=== PATIENT | female | born 1995 | race Two or more races ===

== ENCOUNTER 2024-07-28 15:13 | Emergency (ER) | payer MEDICAID, SELFPAY ==
[2024-07-28 15:27] VITALS: BP 129/84; PULSE 87; RESP 18; TEMP 36.9; O2SAT 98; BMI 37.8
--- NOTE | 2024-07-28 15:31 | XR_ITS ---
Examination: CT abdomen and pelvis without contrast. Coronal 3-D reconstructions. Sagittal 2-D reconstructions. Date and time of exam:July 28, 2024 1618 hours INDICATIONS: Onset right lower abdominal pain right flank pain today COMPARISON: March 30, 2024 CTDI: vol (mGy): 14.7 DLP: (mGycm): 916 Technique: Axial images of the abdomen have been obtained, 3 mm slice thickness Intravenous contrast material has not been administered. Low dose protocols were performed. One or more of the following dose reduction techniques were used; automated exposure control, adjustment of the mA and/or KV according to patient size, use of iterative reconstruction technique. Findings: No focal liver or splenic lesions Contracted gallbladder No pancreatic or adrenal mass No renal or ureteral calculi, no hydronephrosis Aorta normal size Normal appendix No bowel obstruction No diverticulitis Anteverted uterus Left adnexal 18 mm cyst No bladder mass or bladder calculi Intact osseous structures IMPRESSION: No renal or ureteral calculi, no hydronephrosis Normal appendix 18 mm left adnexal cyst No bladder mass or bladder calculi
--- NOTE | 2024-07-28 15:31 | PD.EDRME ---
Rapid Medical Screening Exam RME Arrival date/time: 07/28/24 15:13 29-year-old female presents to the emergency department with right flank pain Chief Complaint: Urogenital-Female Vital signs: Vital Signs Temperature 98.5 F 07/28/24 15:27 Pulse Rate 87 07/28/24 15:27 Respiratory Rate 18 07/28/24 15:27 Blood Pressure 129/84 07/28/24 15:27 Pulse Oximetry (%) 98 07/28/24 15:27 Oxygen Delivery Method Room Air 07/28/24 15:27
[2024-07-28] MEDS: KETOROLAC INJ 30 MG/ML VIAL IM (15:37)
--- NOTE | 2024-07-28 15:37 | PC.NURSE ---
pt stated not
[2024-07-28 15:47] LABS: Collection Type, Urine Clean Catch
[2024-07-28 15:53] LABS: Basophils % (Auto) 0 % (0-2.5); Eosinophils # (Auto) 0.2 Thou/mm3 (0.0-0.5); Eosinophils % (Auto) 1 % (0-10); Hematocrit 43.1 % (36.0-46.0); Hemoglobin 14.8 g/dL (12.0-16.0); Immature Granulocytes % (Auto) 0 % (0-0); Immature Granulocytes Auto 0.04 Thou/mm3 (0.00-0.00); Lymphocytes # (Auto) 3.7 Thou/mm3 (1.0-4.8); Lymphocytes % (Auto) 30 % (10-50); Mean Corpuscular HGB Conc 34.3 g/dl (31.0-37.0); Mean Corpuscular Hemoglobin 28.6 pg (25.0-35.0); Mean Corpuscular Volume 83 fL (80-100); Monocytes # (Auto) 0.7 Thou/mm3 (0.0-0.8); Monocytes % (Auto) 5 % (0-12); Neutrophils # (Auto) 7.7 Thou/mm3 (1.8-7.7); Neutrophils % (Auto) 63 % (37-80); Nucleated Red Blood Cell % 0 /100 WBC (0); Platelet Count 282 Thou/mm3 (140-440); RDW Standard Deviation 37.4 fL (36.4-46.3); Red Blood Count 5.18 Miln/mm3 (4.00-5.20); White Blood Count 12.2 Thou/mm3 (3.6-11.0)
[2024-07-28 16:02] LABS: Bacteria,Urine Rare; Bilirubin,Urine Negative (Negative); Blood,Urine Negative (Negative); Clarity,Urine Turbid (Clear/Hazy); Color,Urine Colorless (Lt Yel-Yel); Culture Indicated,Urine Not Indicated; Glucose, Urine 3+ (Negative); Ketones,Urine Negative (Negative); Leukocyte Esterase,Urine Negative (Negative); Nitrite,Urine Negative (Negative); Protein,Urine Negative (Neg - Trace); RBC,Urine 1 /hpf (0-3); Specific Gravity,Urine 1.005 (1.001-1.035); Squamous Epithelial Cell,Urine 3 /hpf (0-5); Urobilinogen,Urine Negative mg/dL (0.0-1.0); WBC,Urine 1 /hpf (0-5)
[2024-07-28 16:11] LABS: Alanine Aminotransferase 74 U/L (10-49); Albumin, Serum 4.8 gm/dL (3.5-5.0); Albumin/Globulin Ratio 1.8 (1.2-2.2); Alkaline Phosphatase 116 U/L (46-116); Anion Gap 6 (7-16); Aspartate Amino Transferase 47 U/L (0-34); BUN/Creatinine Ratio 13 Ratio (12-20); Bilirubin,Total 0.3 mg/dL (0.3-1.2); Blood Urea Nitrogen 9 mg/dL (9-23); Calcium 9.6 mg/dL (8.3-10.6); Calcium (Corrected) 9.6 mg/dL (8.5-10.1); Carbon Dioxide 26.6 mMol/L (20.0-31.0); Chloride 101 mMol/L (98-107); Creatinine (Component) 0.7 mg/dL (0.6-1.3); Estimated Creatinine Clearance 136.2 mL/min (>60); Globulin 2.7 gm/dL (2.3-3.5); Glucose 159 mg/dL (74-106); Lipase 60 U/L (12-53); Osmolality,Calculated 269 (275-295); Sodium 134 mMol/L (136-145); Total Protein 7.5 gm/dL (5.7-8.2); eGFR > 60 See Note
[2024-07-28 16:15] LABS: HCG Qualitative,Urine Negative
--- NOTE | 2024-07-28 17:46 | PD.EDADULT ---
ED General RME/HPI General Chief complaint: Urogenital-Female Stated complaint: right flank pain Time Seen by Provider: 07/28/24 16:59 Arrival date/time: 07/28/24 15:13 CC: Right chest wall right back pain HPI insidious onset approximately 11 AM today no history of blunt motion repetitive motion and heavy lifting. Denies any shortness of breath but states there is pain in the sites with deep breath denies cough fever chills shortness of breath no OTC medicines taken. Patient takes metformin for PCOS no other complaints at this time. RME / HPI RME / HPI narrative: 07/28/24 15:13 29-year-old female presents to the emergency department with right flank pain Related Data Previous Rx's ?Medication ?Instructions ?Recorded albuterol sulfate 90 mcg/actuation 2 puff inhalation QID #8.5 grams 05/02/22 aerosol inhaler azithromycin 250 mg tablet See Rx Instructions PO .COMPLEX #6 05/02/22 tabs budesonide-formoterol HFA 80 2 puff inhalation BID #10.2 grams 05/02/22 mcg-4.5 mcg/actuation aerosol inhaler (Symbicort) rchfedqceejy-mhrzkzwjentcf-uyibegy 5 ml PO Q6H PRN cough #50 mL 05/02/22 6.25 mg-5 mg-10 mg/5 mL oral syrup (Promethazine VC-Codeine) diphenhydramine HCl 50 mg tablet 50 mg PO Q8H PRN allergic reaction 09/20/23 #10 tabs epinephrine 0.3 mg/0.3 mL 0.3 ml subcut .x1 #2 ea 09/20/23 injection, auto-injector famotidine 20 mg tablet (Pepcid) 20 mg PO BID #6 tabs 09/20/23 prednisone 50 mg tablet 50 mg PO QDAY #3 tabs 09/20/23 meloxicam 7.5 mg tablet 7.5 mg PO QDAY #10 tabs 07/28/24 Allergies Allergy/AdvReac Type Severity Reaction Status Date / Time amoxicillin Allergy Severe Swelling Verified 07/28/24 15:15 of Lip/Tongue/Throat lactose Allergy Severe DIARRHEA, Verified 07/28/24 15:15 BREAK OUT peanut Allergy Severe PUFFY Verified 07/28/24 15:15 Penicillins Allergy Severe hives Verified 07/28/24 15:15 Review of Systems Review of Systems Narrative Review of Systems: GEN: No fever, no chills, no weight loss EYES: No discharge, no visual changes, no pain HEENT: No ear pain, no congestion, no sore throat PULM: No shortness of breath, no cough, no congestion CV: No chest pain, no dyspnea on exertion, no palpitations GI: No nausea, no vomiting, no diarrhea, no pain, no constipation : No frequency, no urgency, no dysuria MUSC/SKEL: Chest wall pain , no joint pain, no back pain SKIN: No rash PSYCH: No hallucinations, no depression HEME/LYMPH: No easy bleeding or bruising tendencies NEURO: No weakness, no headache Past Medical History Past Medical History CARDIAC: Negative Congestive Heart Failure RESPIRATORY: Negative Chronic Obstructive Pulmonary Disease (COPD) GENITOURINARY: Negative Renal Disease ENDOCRINE: Negative Diabetes Mellitus Type 1 or Diabetes Mellitus Type 2 Social History SMOKING STATUS: Never smoker SUBSTANCE USE: does not use ED Exam Narrative Physical exam: [General: Obese not in mild discomfort not in any acute distress Head normocephalic HEENT: Within acceptable limits Neck is supple nontender Chest equal chest rise right chest the midaxillary line the fourth the fifth rib site-specific tenderness to palpation of the intercostals elicited also pain reproduced with cough and torso rotation. Respiratory: Clear to auscultation no wheezes crackles or rubs CV: Rate rhythm is regular no murmurs rubs or clicks Abdomen is distended secondary to body habitus soft nontender no masses positive bowel sounds all 4 quadrants Back: No CVA tenderness no spinous process tenderness from cervical spine thoracic and lumbar spine Skin: Intact no petechiae rash induration ulceration or crepitus Extremities: Moving all extremity against resistance cap refill less than 2 seconds neurosensory intact Neuro: Awake alert oriented x3 Glascow coma 15 no focal deficits] Course Quality Measures none Orders Category Date Time Status CT abdomen pelvis wo con Stat Exams 07/28/24 15:31 Completed CBC Stat Lab 07/28/24 15:39 Completed Comprehensive Metabolic Panel Stat Lab 07/28/24 15:39 Completed HCG Qualitative,Urine Stat Lab 07/28/24 15:38 Completed Lipase Stat Lab 07/28/24 15:39 Completed UA, C/S IF [Urinalysis, C/S if Indicated] Stat Lab 07/28/24 15:38 Completed Ketorolac Inj [Toradol Inj] Med 07/28/24 15:31 Discontinued 30 mg IM X1 ONE Vital Signs Vital signs: Vital Signs Temperature 98.5 F 07/28/24 15:27 Pulse Rate 87 07/28/24 15:27 Respiratory Rate 18 07/28/24 15:27 Blood Pressure 129/84 07/28/24 15:27 Pulse Oximetry (%) 98 07/28/24 15:27 Oxygen Delivery Method Room Air 07/28/24 15:27 [facility] Patient data External records reviewed:: [facility] previous records Clinical information provided by:: patient Social determinants that could affect healthcare access:: none Patient has the following chronic illnesses:: PCOS prediabetic How is presenting disease/condition affected by chronic disease/condition?: uneffected by Evaluation data The following diagnostics were reviewed and interpreted by me:: lab results and radiology exam(s) Lab and/or radiology exams considered but not ordered:: CT shows no acute finding requires emergent or immediate intervention as interpreted by me and read by radiology CBC shows no acute leukocytosis anemia thrombocytopenia CMP shows no acute electrolyte imbalances renal impairment transaminitis or T. bili elevation Urine is negative Interpretation Summary: Intercostal strain is the diagnosis. Medications Medications considered but not ordered:: None Medication administrations:: Medication Administration History Discontinued Medications Ketorolac Tromethamine (Ketorolac Inj 30 Mg/Ml Vial) 30 mg IM X1 ONE Stop: 07/28/24 15:32 Last Admin: 07/28/24 15:37 Dose: 30 mg Documented By: OA None Consultations Consultation(s) initiated? (list below): No Diagnosis Differential Diagnosis ED Complaint MDM: Urolithiasis pneumonia pneumothorax Most likely diagnosis given after review of the tests above:: Intercostal strain Admission Indicated Admission indicated?: not indicated Explain why admission is indicated or not indicated:: Stable for outpatient follow-up Admission Request Was there a request for admission?: No Disposition Plan Disposition Plan: Discharge Discharge Attestation Discharge Attestation: The patient and all family members were given an opportunity to ask questions and understood the discharge instructions. Discharge instructions specifically effects, indications for sooner follow up or return to the emergency department, and the expected course of current diagnosis. Patient condition: Stable Medical Decision Making Differential Diagnosis Differential Diagnosis: Urolithiasis pneumonia pneumothorax Lab Data 07/28/24 15:39 07/28/24 15:39 Labs: Lab Results 07/28/24 07/28/24 Range/Units 15:38 15:39 WBC 12.2 H (3.6-11.0) Thou/mm3 RBC 5.18 (4.00-5.20) Miln/mm3 Hgb 14.8 (12.0-16.0) g/dL Hct 43.1 (36.0-46.0) % MCV 83 (80-100) fL MCH 28.6 (25.0-35.0) pg MCHC 34.3 (31.0-37.0) g/dl RDW Std Deviation 37.4 (36.4-46.3) fL Plt Count 282 (140-440) Thou/mm3 Neut % (Auto) 63 (37-80) % Lymph % (Auto) 30 (10-50) % Hanson % (Auto) 5 (0-12) % Eos % (Auto) 1 (0-10) % Baso % (Auto) 0 (0-2.5) % Neut # (Auto) 7.7 (1.8-7.7) Thou/mm3 Lymph # (Auto) 3.7 (1.0-4.8) Thou/mm3 Hanson # (Auto) 0.7 (0.0-0.8) Thou/mm3 Eos # (Auto) 0.2 (0.0-0.5) Thou/mm3 Baso # (Auto) 0.0 (0.0-0.2) Thou/mm3 Immature Gran # (Auto) 0.04 H (0.00-0.00) Thou/mm3 Absolute Nucleated RBC 0.00 (0.00-0.00) Thou/mm3 Immature Gran % 0 (0-0) % Nucleated RBC % 0 (0) /100 WBC Sodium 134 L (136-145) mMol/L Potassium 4.0 (3.4-5.1) mMol/L Chloride 101 (98-107) mMol/L Carbon Dioxide 26.6 (20.0-31.0) mMol/L Anion Gap 6 L (7-16) BUN 9 (9-23) mg/dL Creatinine 0.7 (0.6-1.3) mg/dL Estim Creat Clear Calc 136.2 (>60) mL/min eGFR > 60 (60 - ) See Note BUN/Creatinine Ratio 13 (12-20) Ratio Glucose 159 H (74-106) mg/dL Calculated Osmolality 269 L (275-295) Calcium 9.6 (8.3-10.6) mg/dL Corrected Calcium 9.6 (8.5-10.1) mg/dL Total Bilirubin 0.3 (0.3-1.2) mg/dL AST 47 H (0-34) U/L ALT 74 H (10-49) U/L Alkaline Phosphatase 116 (46-116) U/L Total Protein 7.5 (5.7-8.2) gm/dL Albumin 4.8 (3.5-5.0) gm/dL Globulin 2.7 (2.3-3.5) gm/dL Albumin/Globulin Ratio 1.8 (1.2-2.2) Lipase 60 H (12-53) U/L Ur Collection Type Clean Catch Urine Color Colorless A (Lt Yel-Yel) Urine Clarity Turbid A (Clear/Hazy) Urine pH 7.0 (5.0-7.0) Ur Specific [place] 1.005 (1.001-1.035) Urine Protein Negative (Neg - Trace) Urine Glucose (UA) 3+ A (Negative) Urine Ketones Negative (Negative) Urine Blood Negative (Negative) Urine Nitrite Negative (Negative) Urine Bilirubin Negative (Negative) Urine Urobilinogen (Auto) Negative (0.0-1.0) mg/dL Ur Leukocyte Esterase Negative (Negative) Urine RBC 1 (0-3) /hpf Urine WBC 1 (0-5) /hpf Ur Squamous Epith Cells 3 (0-5) /hpf Urine Bacteria Rare (None) Ur Culture Indicated? Not Indicated Urine HCG, Qual Negative Discharge Plan Plan Patient Disposition: HOME (Self Care) Patient condition on transfer: Stable Prescriptions/Referrals Prescriptions/Med Rec: New meloxicam 7.5 mg tablet 7.5 mg PO QDAY Qty: 10 0RF No Action prednisone 50 mg tablet 50 mg PO QDAY Qty: 3 0RF diphenhydramine HCl 50 mg tablet 50 mg PO Q8H PRN (Reason: allergic reaction) Qty: 10 0RF famotidine [Pepcid] 20 mg tablet 20 mg PO BID Qty: 6 0RF epinephrine 0.3 mg/0.3 mL auto-injector 0.3 ml subcut .x1 Qty: 2 0RF azithromycin 250 mg tablet See Rx Instructions .ROUTE .COMPLEX Qty: 6 0RF Rx Instructions: For 250 mg dose pack: take 500 mg today (day 1), then 250 mg for 4 days (days 2-5) albuterol sulfate 90 mcg/actuation HFA aerosol inhaler 2 puff inhalation QID Qty: 8.5 0RF budesonide-formoterol [Symbicort] 80-4.5 mcg/actuation HFA aerosol inhaler 2 puff inhalation BID Qty: 10.2 0RF rryictpdwnkk-sdpystfbl-yclsbzn [Promethazine VC-Codeine] 6.25-5-10 mg/5 mL syrup 5 ml PO Q6H PRN (Reason: cough) Qty: 50 0RF Referrals: Dominguez Ordaz MD [Primary Care Provider] - In 1 week Problem List Clinical Impression: Intercostal pain, Muscle strain Patient/Caregiver Discharge Instructions Education Materials: ED Chest Wall Strain (Child) Additional Instructions: When coughing sneezing or taking a deep breath use a couch cushion for splinting to reduce pain take the medication once a day, particularly in the morning, and then use Tylenol at evening for additional pain management this should resolve slowly over time if there is a worsening of symptoms or an abrupt onset of shortness of breath return to the emergency room for reevaluation. Print Language: Danish Stand Alone Forms: [employer] Award Info., Patient Portal Info Letter, Work/School Release PA/[employer] Supervising Physician PA/[employer] Supervising Physician: Bebeto Garrett ENP
[2024-07-28 18:07] VITALS: BP 113/77; PULSE 95; RESP 16; TEMP 36.8; O2SAT 98
== END 2024-07-28 18:12 | disposition home or self-care (01) ==
PROVIDERS: Nurse Practitioner Primary Care; Emergency Provider Emergency Medicine; PCP Internal Medicine
DX: S39.011A Strain of muscle, fascia and tendon of abdomen, initial encounter (principal); R07.82 Intercostal pain; X58.XXXA Exposure to other specified factors, initial encounter
CPT/HCPCS: 36415; 74176; 80053; 81001; 81025; 83690; 85025; 96372; 99284; J1885

== ENCOUNTER → 2025-01-20 | Outpatient (CLI) | payer MEDICAID, SELFPAY ==
--- NOTE | 2025-01-20 16:00 | XR_ITS ---
Examination: Pelvic ultrasound, transabdominal, complete Technique: Transabdominal ultrasound of the pelvis performed using grayscale imaging Date and time of exam: January 20, 2025 at 1550 hours INDICATIONS: Pain with sexual intercourse noticed beginning one year ago FINDINGS: Uterus 8.7 cm endometrial stripe 0.5 cm no uterine mass or intrauterine gestation Right ovary 3.4 cm arterial flow small follicles Left ovary 3.3 cm arterial flow 18 x 10 x 16 mm cyst IMPRESSION: No uterine mass or intrauterine gestation Bilateral ovarian follicular cysts
== END | disposition home or self-care (01) ==
PROVIDERS: PCP Nurse Practitioner Family; Referring Provider Obstetrics & Gynecology; Visit Provider Obstetrics & Gynecology
DX: N83.02 Follicular cyst of left ovary (principal); N83.01 Follicular cyst of right ovary
CPT/HCPCS: 76856

== ENCOUNTER 2025-05-19 20:21 | Emergency (ER) | payer MEDICAID, SELFPAY ==
[2025-05-19 20:23] VITALS: BMI 37.8
[2025-05-19 22:03] VITALS: BP 150/77; PULSE 105; RESP 16; TEMP 36.8; O2SAT 97
--- NOTE | 2025-05-19 22:10 | EDNOTE_ITS ---
Nausea/Vomit./Diarrhea-RME/HPI General Chief complaint: Nausea/Vomiting/Diarrhea Stated complaint: DIARRHEA SINCE 0200, VOMITING, ABD CRAMPING Time Seen by Provider: 05/19/25 21:54 Arrival date/time: 05/19/25 20:21 30F with history of DM presents to ED with 1 day of N/V, ab cramping, and non- bloody diarrhea. Diarrhea is worse than N/V. Limitations: no limitations Related Data Previous Rx's ?Medication ?Instructions ?Recorded albuterol sulfate 90 mcg/actuation 2 puff inhalation Q ID #8.5 grams 05/02/22 aerosol inhaler azithromycin 250 mg tablet See Rx Instructions PO .COM PLEX #6 05/02/22 tabs budesonide-formoterol HFA 80 2 puff inhalation BID #10 .2 grams 05/02/22 mcg-4.5 mcg/actuation aerosol inhaler (Symbicort) yvronbjjtisw-hilvbvznhynmi-lodrmnb 5 ml PO Q6H PRN cou gh #50 mL 05/02/22 6.25 mg-5 mg-10 mg/5 mL oral syrup (Promethazine VC-Codeine) diphenhydramine HCl 50 mg tablet 50 mg PO Q8H PRN yoly rgic reaction 09/20/23 #10 tabs epinephrine 0.3 mg/0.3 mL 0.3 ml subcut .x1 #2 ea 08/26 03/17 injection, auto-injector famotidine 20 mg tablet (Pepcid) 20 mg PO BID #6 tabs 09/20/23 prednisone 50 mg tablet 50 mg PO QDAY #3 tabs meloxicam 7.5 mg tablet 7.5 mg PO QDAY #10 tabs 12/0 12/16 ondansetron 4 mg disintegrating 4 mg PO Q8H PRN nausea and 05/19/25 tablet vomiting #14 tabs Allergies Allergy/AdvReac Type Severity Reaction Status Date / Time amoxicillin Allergy Severe Swelling Verified 05/19/25 20:21 of Lip/Tongue/Throat lactose Allergy Severe DIARRHEA, Verified 05/19/25 20:21 BREAK OUT peanut Allergy Severe PUFFY Verified 05/19/25 20:21 Penicillins Allergy Severe hives Verified 05/19/25 20:21 Review of Systems Review of Systems Systems Reviewed: All systems reviewed, normal except as documented Gastrointestinal Gastrointestinal: Reports as per HPI, Reports abdominal pain, Reports loose stools, Reports nausea and Reports vomiting Past Medical History Past Medical History CARDIAC: Negative Congestive Heart Failure RESPIRATORY: Negative Chronic Obstructive Pulmonary Disease (COPD) GENITOURINARY: Negative Renal Disease ENDOCRINE: Negative Diabetes Mellitus Type 1 or Diabetes Mellitus Type 2 Social History SMOKING STATUS: Never smoker SUBSTANCE USE: does not use ED Exam General Limitations: Present no limitations General appearance: Present alert and in no apparent distress Head Head exam: Present atraumatic Neck Neck exam: Present normal inspection, full ROM and trachea midline Chest Chest inspection: Present normal inspection and symmetric chest wall rise Abdominal Exam Abdominal exam: Present soft Neurological Exam Neurological exam: Present alert, oriented X3 and CN II-XII intact Psychiatric Psychiatric exam: Present normal affect and normal mood Skin Skin exam: Present warm, dry, intact and normal color Course Quality Measures none Orders Category Date Time Status Dicyclomine [Bentyl] Med 05/19/25 22:06 Discontinued 10 mg PO X1 ONE Famotidine [Pepcid] Med 05/19/25 22:06 Discontinued 20 mg PO X1 ONE Ondansetron Odt [Zofran Odt] Med 05/19/25 22:06 Discontinued 4 mg PO X1 ONE Vital Signs Vital signs: Vital Signs Temperature 98.2 F 05/19/25 22:03 Pulse Rate 105 H 05/19/25 22:03 Respiratory Rate 16 05/19/25 22:03 Blood Pressure 150/77 H 05/19/25 22:03 Pulse Oximetry (%) 97 05/19/25 22:03 Oxygen Delivery Method Room Air 05/19/25 22:03 O2 at 97% on RA and WNLs Nausea/Vomiting/Diarrhea MDM Narrative MDM Narrative:: 30F with history of DM presents to ED with 1 day of N/V, ab cramping, and non- bloody diarrhea. Diarrhea is worse than N/V. Physical exam reveals no focal tenderness. Patient is afebrile, calm, and alert. PO challenge passed. Likely viral gastroenteritis. Patient data External records reviewed:: [facility] previous records Clinical information provided by:: patient Social determinants that could affect healthcare access:: none Patient has the following chronic illnesses:: DM How is presenting disease/condition affected by chronic disease/condition?: uneffected by Evaluation data The following diagnostics were reviewed and interpreted by me:: other (specify) (none) Lab and/or radiology exams considered but not ordered:: not ordered Interpretation Summary: n/a Medications / Prescriptions Medications / Prescriptions considered but not ordered:: ordered Medication administrations:: Medication Administration History Discontinued Medications Dicyclomine HCl (Dicyclomine 10 Mg Capsule) 10 mg PO X1 ONE Stop: 05/19/25 22:07 Last Admin: 05/19/25 22:22 Dose: 10 mg Documented By: TIFFANY Famotidine (Famotidine 20 Mg Tablet) 20 mg PO X1 ONE Stop: 05/19/25 22:07 Last Admin: 05/19/25 22:22 Dose: 20 mg Documented By: TIFFANY Ondansetron HCl (Ondansetron Odt 4 Mg Tabrap) 4 mg PO X1 ONE; Protocol Stop: 05/19/25 22:07 Last Admin: 05/19/25 22:22 Dose: 4 mg Documented By: TIFFANY above Consultations Consultation(s) initiated? (list below): No Diagnosis Nausea Differential Diagnosis: traveler's diarrhea, food poisoning, gastroenteritis, clostridium difficile infection, drug-induced nausea and vomiting and dehydration Most likely diagnosis given after review of the tests above:: gastroenteritis Admission Indicated Admission indicated?: not indicated Admission Request Was there a request for admission?: No Disposition Plan Disposition Plan: Discharge Discharge Attestation Discharge Attestation: The patient and all family members were given an opportunity to ask questions and understood the discharge instructions. Discharge instructions specifically effects, indications for sooner follow up or return to the emergency department, and the expected course of current diagnosis. Patient condition: Stable Discharge Plan Plan Patient Disposition: HOME (Self Care) Discharge Disposition comment: Stable Prescriptions/Referrals Prescriptions/Med Rec: New ondansetron 4 mg tablet,disintegrating 4 mg PO Q8H PRN (Reason: nausea and vomiting) Qty: 14 0RF No Action prednisone 50 mg tablet 50 mg PO QDAY Qty: 3 0RF diphenhydramine HCl 50 mg tablet 50 mg PO Q8H PRN (Reason: allergic reaction) Qty: 10 0RF famotidine [Pepcid] 20 mg tablet 20 mg PO BID Qty: 6 0RF epinephrine 0.3 mg/0.3 mL auto-injector 0.3 ml subcut .x1 Qty: 2 0RF meloxicam 7.5 mg tablet 7.5 mg PO QDAY Qty: 10 0RF azithromycin 250 mg tablet See Rx Instructions .ROUTE .COMPLEX Qty: 6 0RF Rx Instructions: For 250 mg dose pack: take 500 mg today (day 1), then 250 mg for 4 days (days 2-5) albuterol sulfate 90 mcg/actuation HFA aerosol inhaler 2 puff inhalation QID Qty: 8.5 0RF budesonide-formoterol [Symbicort] 80-4.5 mcg/actuation HFA aerosol inhaler 2 puff inhalation BID Qty: 10.2 0RF iypyzgmlkurg-bzkalmfrv-ogykqgw [Promethazine VC-Codeine] 6.25-5-10 mg/5 mL syrup 5 ml PO Q6H PRN (Reason: cough) Qty: 50 0RF Referrals: Carola Wilburn FNP-C [Primary Care Provider] - In 1 week Problem List Clinical Impression: Gastroenteritis Patient/Caregiver Discharge Instructions Education Materials: ED Diarrhea, Viral (Adult) Additional Instructions: Please follow-up with PCP within 24-48 hours and return immediately if symptoms worsen. Keep hydrated. Advance diet as tolerated. Print Language: Setswana Stand Alone Forms: Patient Portal Info Letter ADRIANNE/DANIELA Supervising Physician ADRIANNE/DANIELA Supervising Physician: Dr. Villar
[2025-05-19] MEDS: FAMOTIDINE 20 MG TABLET PO (22:22)
[2025-05-19] MEDS: DICYCLOMINE 10 MG CAPSULE PO (22:22)
[2025-05-19] MEDS: ONDANSETRON ODT 4 MG TABRAP PO (22:22)
== END 2025-05-19 23:16 | disposition home or self-care (01) ==
PROVIDERS: Emergency Provider Emergency Medicine; PCP Nurse Practitioner Family
DX: K52.9 Noninfective gastroenteritis and colitis, unspecified (principal)
CPT/HCPCS: 99283; Q0162; A9270